=== PATIENT | male | born 1965 | race Two or more races ===

== ENCOUNTER 2020-04-10 17:20 | Inpatient (IN) | payer BC, OTHER ==
[~2020-04-10] VITALS: Ht 185.4 cm; Wt 69.8 kg
[2020-04-10] MEDS ORDERED: SODIUM CHLORIDE 0.9% 1,000 ML IV ONE (18:00)
[2020-04-10 18:27] LABS: Basophils # (auto) 0.1 10 ^3/uL (0-0.2); Basophils % (auto) 0.6 % (0.0-2.0); Eosinophils # (auto) 0.1 10 ^3/uL (0-0.8); Eosinophils % (auto) 0.6 % (0.0-7.0); Hematocrit 41.6 % (41.0-53.0); Hemoglobin 14.4 g/dL (13.5-17.5); Lymphocytes # (auto) 1.3 10 ^3/uL (0.4-5.4); Lymphocytes % (auto) 14.3 % (10.0-50.0); Mean Corpuscular Hgb Conc. 34.5 g/dL (32.0-36.0); Mean Corpuscular Volume 89.6 fL (80.0-100.0); Monocytes # (auto) 0.9 10 ^3/uL (0-1.3); Monocytes % (auto) 9.8 % (0.0-12.0); Neutrophils % (auto) 74.7 % (37.0-80.0); Platelet Count (auto) 221 10^3/uL (140-450); Red Blood Cells 4.64 10^6/uL (4.5-5.90); Red Cell Distribution Width 13.1 % (11.8-14.3); White Blood Cell 9.3 10^3/uL (4.4-10.8)
[2020-04-10 18:42] LABS: INR 0.96 (0.9-1.15); Partial Thromboplastin Time 21.7 sec (23.0-31.2)
[2020-04-10 18:45] LABS: Salicylate < 1.7 mg/dL (2.8-20.0)
[2020-04-10 18:55] LABS: Acetaminophen < 2.0 ug/mL (10-30)
[2020-04-10 19:01] LABS: Albumin 3.9 g/dL (3.4-5.0); Anion Gap 4 (5-15); Blood Alcohol < 3.0 mg/dL (0-5); Blood Urea Nitrogen 26 mg/dL (7-18); Calcium 9.3 mg/dL (8.5-10.1); Carbon Dioxide 27 mmol/L (21-32); Chloride 110 mmol/L (98-107); Glucose 91 mg/dL (74-106); Magnesium 2.3 mg/dL (1.6-2.6); Sodium 141 mmol/L (136-145)
[2020-04-10 19:05] LABS: Alanine Aminotransferase 23 U/L (16-61); Alkaline Phosphatase 89 U/L (45-117); Aspartate Aminotransferase 16 U/L (15-37); BUN/Creatinine Ratio 18.4; GFR African American 67 mL/min; GFR Non-African American 55 mL/min; Total Protein 7.5 g/dL (6.4-8.2)
[2020-04-10] MEDS ORDERED: ACETAMINOPHEN 325 MG TAB PO ONE (19:45)
[2020-04-10 22:07] LABS: Urine Bacteria NONE SEEN /hpf (None Seen); Urine Blood Negative /uL (Negative); Urine Hyaline Cast FEW /lpf (0 - 2); Urine Mucus FEW (None Seen); Urine Specific Gravity 1.019 (1.001-1.035); Urine WBC 3 /hpf (0 - 3)
[2020-04-10 22:25] LABS: Alcohol, Urine < 3.0 mg/dL (0-10); Amphetamine Screen, Urine NEGATIVE (NEGATIVE); Barbiturate Scree,Urine NEGATIVE (NEGATIVE); Benzodiazephine Screen, Urine NEGATIVE (NEGATIVE); Cannabinoid Screen, Urine POSITIVE (NEGATIVE); Cocaine Screen, Urine NEGATIVE (NEGATIVE); Opiate Scree,Urine NEGATIVE (NEGATIVE)
[2020-04-10 22:32] LABS: Phencyclidine Screen, Urine NEGATIVE (NEGATIVE)
[2020-04-10] MEDS: SODIUM CHLORIDE 0.9% 1,000 ML IV SCH (23:13)
[2020-04-10] MEDS ORDERED: DOCUSATE SOD 100 MG CAP PO PRN (23:15)
[2020-04-10] MEDS ORDERED: LORazepam 0.5 MG TAB PO PRN (23:15)
[2020-04-10] MEDS ORDERED: ONDANSETRON HCL 4 MG/2 ML VIAL IV PRN (23:15)
[2020-04-10] MEDS ORDERED: HYDROcodone-ACET 5/325MG TAB PO PRN (23:15)
[2020-04-11] VITALS (7 sets, daily range): BP systolic 121–140; BP diastolic 71–89
--- NOTE | 2020-04-11 01:30 | NUR ---
Telemetry admit from ER [place] admitted to Telemetry unit after SBAR received. Patient oriented to Mela Walden, primary RN, unit, room, bed, and unit policies regarding patient care and visiting hours. Patient now on continuous telemetry monitoring, tele box # [id number] and telemetry reading on arrival to unit is 68. Patient placed on bedside oxygen, weighed by bedscale and encouraged to call if they need something. All questions and concerns addressed, patient verbalized understanding. Note:
[2020-04-11] MEDS ORDERED: RISP0.5T45 PO (02:55)
[2020-04-11] MEDS ORDERED: AML5T PO ×2 (02:55→02:56)
[2020-04-11] MEDS ORDERED: ATOR20TA PO (02:55)
[2020-04-11] MEDS ORDERED: ATOR80TA PO (02:55)
[2020-04-11] MEDS ORDERED: METO-159 PO (02:55)
[2020-04-11] MEDS ORDERED: LORazepam 2MG/ML-1ML VIAL IV ONE (14:15)
--- NOTE | 2020-04-11 15:00 | NUR ---
PAGED DR CRONIN TO MAKE AWARE THAT PATIENT CAN NOT TAKE ASPIRIN. PATIENT HAS STOMACH ULCERS AND OCCASIONALLY THEY WILL BLEED, SO PATIENT DOES NOT TAKE ASA.
[2020-04-11] MEDS: SODIUM CHLORIDE 0.9% 1,000 ML IV SCH (15:34)
[2020-04-11] MEDS ORDERED: SODIUM CHLORIDE 0.9% 1,000 ML IV ONE (17:15)
[2020-04-11] MEDS ORDERED: IOHEXOL 350 MG/ML 100ML IJ ONE (17:27)
--- NOTE | 2020-04-11 19:00 | NUR ---
OPENING NOTE NOC SHIFT PATIENT IS ALERT AND ORIENTED X4, ANSWERS IN COMPLETE SENTENCES AND MAKES APPROPRIATE EYE CONTACT. PATIENT IS IN BED, BED IS LOCKED AT LOWEST POSITION, BED RAILS UP X2 AND HEAD OF BED IS UP >30 DEGREES. BEDSIDE TABLE WITHIN REACH, CALL LIGHT WITHIN REACH. DISCUSSED POC WITH PATIENT AND INSTRUCTED PATIENT TO CALL PRN USING CALL LIGHT; PATIENT VERBALIZED UNDERSTANDING. WILL CONTINUE TO MONITOR Q1H AND PRN. PATIENT IS AWARE THAT HE WILL BE NPO AT MIDNIGHT.
[2020-04-11] MEDS: ACETAMINOPHEN 325 MG TAB PO PRN (20:09)
--- NOTE | 2020-04-11 20:09 | NUR ---
HEADACHE PATIENT REPORTS HEADACHE PAIN 4/10 AND REQUESTS TYLENOL. TYLENOL GIVEN, WILL CONTINUE TO MONITOR Q1H AND PRN. CALL LIGHT WITHIN REACH.
--- NOTE | 2020-04-11 21:00 | NUR ---
PATIENT STATES HEADACHE RESOLVED.
[2020-04-11] MEDS: ATORVASTATIN 20 MG TAB PO SCH (21:33)
[2020-04-11] MEDS: ENOXAPARIN SOD 80 MG/0.8ML SYRINGE SC SCH (21:34)
[2020-04-11] MEDS: TEMAZEPAM 15 MG CAP PO PRN (21:34)
--- NOTE | 2020-04-12 | NUR ---
PATIENT IS NPO NO FOOD OR DRINKS AT BEDSIDE. PATIENT IS AWARE THAT HE IS NPO.
--- NOTE | 2020-04-12 02:00 | NUR ---
ROUNDS PATIENT IS COMFORTABLE IN BED. NO S/SX OF DISTRESS, SOB OR PAIN. WILL CONTINUE TO MONITOR Q1H AND PRN.
[2020-04-12 05:00] VITALS: BP 144/85
--- NOTE | 2020-04-12 06:30 | NUR ---
IV insertion IV access obtained, via clean sterile technique by inserting 22 gauge catheter at RIGHT FA after 1 attempt(s). IV secured properly. No trauma to site. Patient tolerated well. THIS IS A SECOND IV, NEEDED FOR STRESS TEST
[2020-04-12 06:31] LABS: Anion Gap 3 (5-15); Blood Urea Nitrogen 14 mg/dL (7-18); Calcium 8.5 mg/dL (8.5-10.1); Carbon Dioxide 28 mmol/L (21-32); Chloride 109 mmol/L (98-107); Glucose 81 mg/dL (74-106); Sodium 140 mmol/L (136-145)
[2020-04-12 06:37] LABS: BUN/Creatinine Ratio 15.4; Cholesterol 121 mg/dL (< 200); GFR African American 111 mL/min; GFR Non-African American 92 mL/min; HDL Cholesterol 58 mg/dL (40-59); LDL Cholesterol 60 mg/dL (< 100); Triglycerides 60 mg/dL (< 150)
--- NOTE | 2020-04-12 07:00 | NUR ---
CLOSING NOTE- NOC SHIFT ENDORSED PATIENT CARE TO DAY SHIFT NURSE TORIBIO JACQUES. NURSE IS AWARE PATIENT IS NPO FOR PROCEDURE SCHEDULED FOR THIS MORNING. NO S/SX OF DISTRESS, SOB OR PAIN.
--- NOTE | 2020-04-12 08:05 | NUR ---
Stress Test Patient left unit in wheelchair for stress test.
[2020-04-12] MEDS ORDERED: ADENOSINE 55 MG in GIVE UN-DILUTED 0 ML IV STA (08:12)
[2020-04-12 08:38] VITALS: BP 148/96
[2020-04-12 09:00] VITALS: BP 138/93
--- NOTE | 2020-04-12 09:05 | NUR ---
ASSUMED CARE OF PATIENT PATIENT IS SITTING UP IN BED WATCHING TELEVISION, NO S/S OF DISTRESS, SOB, OR PAIN. UPDATED ON POC AND INSTRUCTED TO CALL FOR ASSISTANCE NEEDED, PATIENT VERBALIZED UNDERSTANDING. BED LOCKED IN LOWEST POSITION, SIDE RAILS UP X2, CALL LIGHT WITHIN REACH. SAFETY PRECAUTIONS IN PLACE. WILL CONTINUE TO MONITOR FOR CHANGES. Addendum: 04/12/20 at 1029 by Kady Grider RN BED ALARM ON
[2020-04-12] MEDS ORDERED: ASPirin-EC 81 mg tab PO SCH (10:00)
[2020-04-12] MEDS: SODIUM CHLORIDE 0.9% 1,000 ML IV SCH (10:24)
[2020-04-12] MEDS: ENOXAPARIN SOD 80 MG/0.8ML SYRINGE SC SCH (10:24)
[2020-04-12 13:00] VITALS: BP 157/92
--- NOTE | 2020-04-12 15:56 | NUR ---
Assessment Patient is a 54-year-old male, who is alert and oriented. Patient cognitive abilities are intact. Patient stated that he lives alone and living on SSI and DSI benefits. Patient stated that he can do all ADLs independently and ambulates with a cane. Patient stated that he has transportation for post discharge. Patient stated that his cousin Miriam Vera ([phone]) and son Shay Gregory ([phone]) is his support system. Patient stated that he has stated has a completed Advance Directive form at his bedside. Discharge planning: Patient will follow up with his PCP post discharge from [facility]. Patient has no post discharge need at this moment. Addendum: 04/12/20 at 1557 by MIRIAM GRANT SS Amended: Links added.
[2020-04-12 16:47] VITALS: BP 152/95
--- NOTE | 2020-04-12 17:06 | NUR ---
EEG-ELECTROENCEPHALOGRAM COMPLETED AT BEDSIDE @ 2734.
--- NOTE | 2020-04-12 20:00 | NUR ---
Opening Shift Note Assumed care of patient, awake and alert. No S/S of distress/SOB or pain. Instructed on POC and to call for assist PRN, will continue to monitor for changes Q1hr and PRN.
[2020-04-12] MEDS: ATORVASTATIN 20 MG TAB PO SCH (21:15)
[2020-04-12] MEDS: TEMAZEPAM 15 MG CAP PO PRN (21:15)
[2020-04-12 23:23] VITALS: BP 157/90
[2020-04-13 05:50] VITALS: BP 145/90
--- NOTE | 2020-04-13 07:35 | NUR ---
Report given to Tristin Nunez, patient is resting no distress.
--- NOTE | 2020-04-13 07:40 | NUR ---
OPENING SHIFT NOTE ASSUMED CARE OF PATIENT, AWAKE AND ALERT. NO S/S OF DISTRESS, SOB, OR PAIN. UPDATED ON POC AND INSTRUCTED TO CALL FOR ASSISTANCE NEEDED, PATIENT VERBALIZED UNDERSTANDING. BED LOCKED IN LOWEST POSITION, SIDE RAILS UP X2, CALL LIGHT WITHIN REACH. SAFETY PRECAUTIONS IN PLACE. WILL CONTINUE TO MONITOR FOR CHANGES.
[2020-04-13] MEDS: ACETAMINOPHEN 325 MG TAB PO PRN (08:19)
[2020-04-13 09:00] VITALS: BP 141/107
[2020-04-13] MEDS ORDERED: ENOXAPARIN SOD 40 MG/0.4 ML SYRINGE SC SCH (10:00)
[2020-04-13] MEDS ORDERED: LIDOCAINE VISCOUS 2% 15ML UD ONE (12:48)
[2020-04-13] MEDS ORDERED: SODIUM CHLORIDE LOCK 10 ML ONE (12:48)
[2020-04-13 13:00] VITALS: BP 155/106
[2020-04-13] MEDS ORDERED: METOCLOPRAMIDE HCL 5MG/ml INJ 2ml VIAL IV ONE (13:00)
--- NOTE | 2020-04-13 13:00 | NUR ---
ORTHOSTATIC VITALS SIGNS SITTING- HR 62 RR 18 O2 SAT 97 BP 155/106 STAND- HR 73 RR 18 O2 SAT 97 BP 162/117 LAYING- HR 62 RR 18 O2 SAT 97 BP 159/92
[2020-04-13] MEDS: MIDAZOLAM HCL 5 MG/ML-1ML VIAL ONE ×5 (13:47→16:20)
[2020-04-13] MEDS: fentaNYL CITRATE 100 MCG/2 ML VL ONE ×5 (13:47→16:20)
[2020-04-13] MEDS: diphenhdrAMINE HCL 50 MG/1 ML VL ONE ×2 (13:47→16:17)
[2020-04-13 14:29] VITALS: BP 162/117
[2020-04-13 14:30] VITALS: BP 159/92
[2020-04-13] MEDS ORDERED: amLODIPine BESYLATE 5 MG TAB PO PRN ×3 (14:45→15:30)
[2020-04-13] MEDS ORDERED: PANT40TA2 PO (14:49)
--- NOTE | 2020-04-13 15:15 | NUR ---
PATIENT TAKEN TO OR FOR EGD NO DISTRESS NOTED.
--- NOTE | 2020-04-13 16:42 | NUR ---
SPOKE WITH DR Eduardo MCCOLLUM, EGD SHOWS GASTRITIS. PATIENT IS OKAY TO BE DISCHARGED HOME.
--- NOTE | 2020-04-13 17:25 | NUR ---
PATIENT BACK TO ROOM FROM PACU PATIENT IS RESTING WITH EYES CLOSED, AWOKEN BY NAME. NO DISTRESS NOTED, NO PAIN NOTED. PATIENT INSTRUCTED TO CALL FOR ASSISTANCE NEEDED. BED LOCKED IN LOWEST POSITION, SIDE RAILS UP X2, CALL LIGHT WITHIN REACH. WILL CONTINUE TO MONITOR.
[2020-04-13 18:00] VITALS: BP 143/96
--- NOTE | 2020-04-13 19:10 | NUR ---
DISCHARGE HOME Discharge instructions given as ordered. Encourage to follow up with PMD as instructed. All questions and concerns addressed. Patient verbalized understanding. Medication reconciliation form completed and copy given to patient. IV removed with catheter intact, pressure dressing applied. Telemetry unit returned to ICU. Patient taken to vehicle via ambulation with all personal belongings, accompanied by staff. No distress noted at time of departure.
[2020-04-13] MEDS ORDERED: SUCR1TAB22 PO (19:58)
== END 2020-04-13 19:10 | disposition home or self-care (01) | DRG 314 ==
LOC: EDBD 17:20 → ER 17:25 → TELE-WESTW 17:26 → UNDOADMIN 17:26 → TELE 17:26 → TELE-WESTW 23:54 → UNDODISIN 04-11 01:11
PROVIDERS: ADMIT Hospitalist; ATTEND Internal Medicine
PROC: 0DB88ZX Excision of Small Intestine, Via Natural or Artificial Opening Endoscopic, Diagnostic (ICD-10-PCS; 2020-04-13)
PROC: 0DB68ZX Excision of Stomach, Via Natural or Artificial Opening Endoscopic, Diagnostic (ICD-10-PCS; principal; 2020-04-13 16:15)
DX: I95.9 Hypotension, unspecified (principal); N17.0 Acute kidney failure with tubular necrosis; S09.8XXA Other specified injuries of head, initial encounter; E78.5 Hyperlipidemia, unspecified; F12.90 Cannabis use, unspecified, uncomplicated; K21.9 Gastro-esophageal reflux disease without esophagitis; I48.0 Paroxysmal atrial fibrillation; N18.30 Chronic kidney disease, stage 3 unspecified; I12.9 Hypertensive chronic kidney disease with stage 1 through stage 4 chronic kidney disease, or unspecified chronic kidney disease; G40.909 Epilepsy, unspecified, not intractable, without status epilepticus; I13.10 Hypertensive heart and chronic kidney disease without heart failure, with stage 1 through stage 4 chronic kidney disease, or unspecified chronic kidney disease; J43.9 Emphysema, unspecified; K29.70 Gastritis, unspecified, without bleeding; K44.9 Diaphragmatic hernia without obstruction or gangrene; M50.222 Other cervical disc displacement at C5-C6 level; W18.30XA Fall on same level, unspecified, initial encounter; Y93.89 Activity, other specified; Y92.89 Other specified places as the place of occurrence of the external cause; Y99.0 Civilian activity done for income or pay; Z80.9 Family history of malignant neoplasm, unspecified; Z82.49 Family history of ischemic heart disease and other diseases of the circulatory system; Z87.11 Personal history of peptic ulcer disease; Z88.6 Allergy status to analgesic agent; Z90.49 Acquired absence of other specified parts of digestive tract; R07.89 Other chest pain
CPT/HCPCS: 36415; 70450; 70551; 71045; 71275; 72125; 78452; 80048; 80053; 80061; 80307; 80320; 80329; 81001; 83735; 84436; 84443; 84481; 84484; 85025; 85610; 85730; 93017; 93306; 93886; 95819; 96360; G0378; J0153; J2250